=== PATIENT | male | born 1995 | race Caucasian/White ===

== ENCOUNTER 2017-03-04 12:56 | Emergency (ER) | payer BC, OTHER ==
[~2017-03-04] VITALS: Ht 177.8 cm; Wt 77.1 kg
--- NOTE | ~2017-03-04 | S ---
[facility] [address] [place] [address] SURGICAL PATH RPT PROCEDURE Name: YOSSI ROE Room #: DEP [place]#: [id number] Admission: 03/04/17 Date of : 89 Discharge: 03/04/17 Report #: [id number] Path Case #: [id number] PATHOLOGY REPORT COLLECTION DATE: 03/04/2017 RECEIVED DATE: 03/05/2017 SUBMITTING PHYS: Dr. Boyd Martell OTHER PHYS: Sonido Mcmahon SPECIMEN(S) RECEIVED: A.Distal esophagus B.Mid esophagus * * * * * * * * * * * * FINAL DIAGNOSIS: A. Squamous mucosa, distal esophagus, endoscopic biopsy: - Moderate active esophagitis with numerous intraepithelial eosinophils of approximately 90/hpf, compatible with eosinophilic esophagitis (please see comment). - Negative for intestinal metaplasia or dysplasia. B. Squamous mucosa, mid esophagus, endoscopic biopsy: - Moderate active esophagitis with numerous intraepithelial eosinophils of approximately 60/hpf, compatible with eosinophilic esophagitis (please see comment). - Negative for intestinal metaplasia or dysplasia. COMMENT: Examination of the esophageal biopsy tissue shows squamous mucosa with a marked number of intraepithelial eosinophils. Although eosinophils are commonly encountered in inflammation due to reflux esophagitis, the eosinophils in the present specimen are numerous, exceeding > 60/hpf. Apart from reflux esophagitis, potential etiologies for the histologic pattern include allergic and collagen vascular diseases, fungal or parasitic infections, and eosinophilic esophagitis (idiopathic). Please correlate with clinical and endoscopic findings. (IUV:mgr; 03/08/2017) PATHOLOGIST: Shawanda Otero M.D. REPORT ELECTRONICALLY SIGNED BY: Shawanda Otero M.D. DATE/TIME: 03/08/2017 14:57 * * * * * * * * * * * * GROSS PATHOLOGY: A. Received in formalin labeled "Yossi Roe, distal esophagus," are 3 segments of white soft tissue measuring 0.7 x 0.2 x 0.[address] [address] SURGICAL PATH RPT PROCEDURE Name: YOSSI ROE Room #: [facility].#: [id number] Admission: 03/04/17 Date of : 89 Discharge: 03/04/17 Report #: [id number] Path Case #: [id number] aggregate dimensions and ranging from 0.2 to 0.3 cm in maximum dimension. The specimen is submitted entirely in cassette A1. B. Received in formalin labeled "Yossi Roe, mid esophagus," are 3 segments of mac to white soft tissue measuring 0.4 x 0.2 x 0.2 cm in aggregate dimensions and ranging from 0.1 to 0.2 cm in maximum dimension, smaller segments may not survive processing. The specimen is submitted entirely in cassette B1. (CIARA; 03/07/2017) CLINICAL HISTORY: Food bolus, dysphasia INITIAL CPT CODE(S): A; 45634 B; 76355 Professional services performed by [facility] at [address] [place] [address] Technical services performed by [facility] at [address] [place] [address], [address], [place] [address]. [facility] [address] [place] [address] PHONE: [phone] DIRECTOR: Ehsan Hodges M.D. * * * END OF REPORT * * *
[2017-03-04 17:09] VITALS: BP 115/83
== END 2017-03-04 17:11 | disposition home or self-care (01) ==
LOC: ER 12:56
DX: K22.2 Esophageal obstruction (principal); K56.49 Other impaction of intestine
CPT/HCPCS: 62110; 62900